=== PATIENT | female | born 1995 | race Caucasian/White ===

== ENCOUNTER 2020-10-29 10:00 | Day surgery (SDC) | payer OTHER ==
[~2020-10-29] VITALS: Ht 154.9 cm; Wt 92.5 kg
[2020-10-29] MEDS ORDERED: PRIL40 PO (10:33)
[2020-10-29 10:45] VITALS: BP 130/83; PULSE 95; TEMP 97.5
[2020-10-29 12:45] VITALS: BP 105/73; PULSE 97; TEMP 97.7
[2020-10-29 13:00] VITALS: BP 99/76; PULSE 88
[2020-10-29 13:15] VITALS: BP 120/87; PULSE 93
--- NOTE | 2020-10-29 13:45 | NUR ---
1245 PATIENT ARRIVES TO [facility] [place] [facility] VIA CART. AMBLUATES TO CHAIR WITH [facility]. WARM BLANKET GIVEN FOR COMFORT. PATIENT FENIES COMPLAINT. VSS. 1300 PATIENT TAKING JELLO AND GRAPE JUICE PO TOLERATING WELL. DR. RONDON IN SPEAKING WITH PATIENT ABOUT PROCEDURE. 1315 D/C INSTRUCTIONS, VERBAL AND WRITTEN GIVEN TO PATIENT. QUESTIONS INVITED AND ANSWERED. IV TO R FA DISCONTINUED. TOLERATED WELL. 1324 PATIENT D/C'D TO POV WITH A FRIEND VIA W/C.
== END 2020-10-29 13:24 | disposition home or self-care (01) ==
LOC: SDCO 10:00
DX: K22.2 Esophageal obstruction (principal); K21.00 Gastro-esophageal reflux disease with esophagitis, without bleeding; J45.909 Unspecified asthma, uncomplicated; Z20.822 Contact with and (suspected) exposure to COVID-19; Z79.899 Other long term (current) drug therapy
CPT/HCPCS: C1726; J2704; J7030

== ENCOUNTER 2021-06-20 08:46 | Emergency (ER) | payer OTHER ==
[~2021-06-20] VITALS: Ht 154.9 cm; Wt 90.9 kg
[~2021-06-20 08:46] MED LIST: PRIL40 PO
[2021-06-20 09:02] VITALS: TEMP 98.6
[2021-06-20] MEDS ORDERED: FLOVENT 44MCG I13 GM IH (09:02)
[2021-06-20 10:00] VITALS: BP 134/83; PULSE 91
== END 2021-06-20 10:16 | disposition home or self-care (01) ==
LOC: COL.ER 08:46
DX: T18.198A Other foreign object in esophagus causing other injury, initial encounter (principal); W45.8XXA Other foreign body or object entering through skin, initial encounter